=== PATIENT | male | born 1970 | race Caucasian/White ===

== ENCOUNTER 2016-05-17 13:42 | Emergency (ER) | payer MEDICARE | END 2016-05-17 15:53 | disposition home or self-care (01) | LOC: ER 13:42 | DX: N30.90 Cystitis, unspecified without hematuria (principal); R50.9 Fever, unspecified; F17.210 Nicotine dependence, cigarettes, uncomplicated; Z88.0 Allergy status to penicillin ==

== ENCOUNTER 2016-06-14 14:08 | Emergency (ER) | payer MEDICARE | END 2016-06-14 15:16 | disposition home or self-care (01) | LOC: ER 14:08 | DX: J06.9 Acute upper respiratory infection, unspecified (principal); H60.91 Unspecified otitis externa, right ear; F17.210 Nicotine dependence, cigarettes, uncomplicated; Z88.0 Allergy status to penicillin | CPT/HCPCS: 99282 ==